=== PATIENT | male | born 1935 | race Caucasian/White ===

== ENCOUNTER 2017-03-27 23:06 | Observation (INO) | payer MEDICARE ==
[~2017-03-27] VITALS: Ht 175.3 cm; Wt 61.3 kg
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
[~2017-03-27 23:06] MED LIST changes: -FAMOTIDINE20 MG PO
[2017-03-28 00:16] LABS: BICARBONATE 17.7 mmol/L (18.0-23.0); LACTATE 3.2 mEq/L (0.50-1.60); PCO2 28 mmHg (35-45); PO2 155 mmHg (80-90)
[2017-03-28 00:17] LABS: BASOPHIL % 0.7 %; EOSINOPHIL # 0.1 K/uL (0.0-0.5); EOSINOPHIL % 3.3 %; HEMATOCRIT 32.2 % (33.0-50.0); HEMOGLOBIN 11.5 g/dL (11.0-16.0); IMMATURE GRANULOCYTE % 0.5 %; LYMPHOCYTE # 0.8 K/uL (0.8-4.0); LYMPHOCYTE % 17.5 %; MCH 33.1 pg (27.0-34.0); MCHC 35.7 gm/dL (32.0-36.5); MCV 92.8 fl (83.0-98.0); MONOCYTE # 0.5 K/uL (0.0-1.0); MONOCYTE % 11.7 %; MPV 9.3 fl (9.4-12.4); NEUTROPHIL # (ANC) 2.9 K/uL (1.4-9.0); NEUTROPHIL % 66.3 %; NRBC % 0 /100WBC (0-0.00); PLATELET COUNT 152 K/uL (150-450); RBC 3.47 M/uL (3.50-5.50); RDW-CV 14.9 % (11.9-14.6); WBC 4.3 K/uL (4.0-11.0)
[2017-03-28 00:22] LABS: BILIRUBIN URINE NEGATIVE (NEGATIVE); BLOOD URINE 10 /UL (NEGATIVE); COLOR URINE YELLOW (YELLOW); GLUCOSE URINE NEGATIVE (NEGATIVE); KETONE URINE NEGATIVE (NEGATIVE); LEUKOCYTES URINE NEGATIVE /UL (NEGATIVE); NITRITE URINE NEGATIVE (NEGATIVE); PROTEIN URINE NEGATIVE (NEGATIVE); SPEC GRAVITY URINE 1.005 (1.003-1.035); TURBIDITY URINE CLEAR (CLEAR); UROBILINOGEN URINE NORMAL (NORMAL)
[2017-03-28 00:26] LABS: INR - (THERAPEUTIC) 1.08 (0.92-1.07); PROTIME 11.4 SECONDS (9.8-11.4); PTT 26 SECONDS (25-32)
[2017-03-28 00:31] LABS: BACTERIA URINE RARE (NEGATIVE); EPITHELIAL URINE NEGATIVE #/HPF (NEGATIVE); RBC URINE 0-2 #/HPF (NEGATIVE); RENAL EPITH URINE NEGATIVE #/HPF (NEGATIVE); WBC URINE NEGATIVE #/HPF (NEGATIVE)
[2017-03-28 00:39] LABS: BARBITURATE NEGATIVE (NEGATIVE); COCAINE NEGATIVE (NEGATIVE); OPIATES NEGATIVE (NEGATIVE)
[2017-03-28 00:40] LABS: ALBUMIN 3.6 gm/dL (3.5-5.0); ALK PHOS 93 IU/L (33-138); ALT 38 IU/L (12-78); ANION GAP 16.1 (10.0-19.0); AST 37 IU/L (10-40); BLOOD UREA NITROGEN 14 mg/dL (6-24); CALCIUM 7.8 mg/dL (8.5-10.5); CHLORIDE 98 mMol/L (96-110); CO2 18 mMol/L (22-32); CPK 128 IU/L (35-332); CREATININE 1.3 mg/dL (0.6-1.3); ESTIMATED GFR (MDRD EQUATION) 53; POTASSIUM 4.1 mMol/L (3.7-5.1); SODIUM 128 mMol/L (135-145); TOTAL BILIRUBIN 1.4 mg/dL (0.0-1.5); TOTAL PROTEIN 6.7 g/dL (6.0-8.4)
[2017-03-28 00:40] LABS: AMPHETAMINE NEGATIVE (NEGATIVE)
[2017-03-28] MEDS ORDERED: LIPITOR40 MG PO (03:14)
[2017-03-28] MEDS ORDERED: FAMOTIDINE20 MG PO (03:15)
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
--- NOTE | 2017-03-28 05:20 | NUR ---
Signficant events: Pt A/Ox3. VSS. NO complaints of pain. Head wounds covered, CDI. Up 1PA. On RA. Saline locked. 1:1 sitter continues. Psych to see today.
[2017-03-28 06:27] LABS: ANION GAP 14.6 (10.0-19.0); CREATININE 1.3 mg/dL (0.6-1.3); POTASSIUM 4.6 mMol/L (3.7-5.1)
--- NOTE | 2017-03-28 11:15 | NUR ---
Reviewed patients chart. I called and spoke with [facility] to see if patient was an EPC. They request that we call them when patient is ready for discharge and they will come up and interview patient to make determination. I called and spoke with Dr Barksdale who states patient is ready for transfer to [facility] anytime. I called and spoke with Page at the access center who states that they can accept patient when medically cleared. I faxed discharge paperwork to Dr Barksdale to complete so patient could go to [facility].
--- NOTE | 2017-03-28 14:04 | NUR ---
Patient alert and oriented X 3. Room air. SBP 130-140. HR 50's. Resting in bed. Ambulated in room to restroom. Dressings to bilateral temporal and upper left head, gauze and stockingette. Dressing clean dry and intact. Scant dressing to right temporal. Patient sad no plans for suicide at this time. Family has been at bedside this shift. All morning medications given next meds due at 2100. 1:1 sitter during shift. Pleasant and cooperative with cares.
--- NOTE | 2017-03-28 14:15 | NUR ---
Discharge paperwork completed and faxed to PCU. I called and updated D that patient could go to [facility] today. Officer Tacos sorensen #[id number] came up and is going to EPC patient to [facility]. I called and checked with Page who statesd patient can be admitted now. Patient did leave with Officer Tacos per w/c. Transfer packet sent.
== END 2017-03-28 14:30 ==
LOC: GACC 23:06 → GPCU 03-28 01:46
PROVIDERS: Emergency Medicine; ADMIT Family Medicine
DX: T14.91 Suicide attempt (principal); X74.01XA Intentional self-harm by airgun, initial encounter; J43.9 Emphysema, unspecified; I25.10 Atherosclerotic heart disease of native coronary artery without angina pectoris; E78.5 Hyperlipidemia, unspecified; Z98.890 Other specified postprocedural states; F10.10 Alcohol abuse, uncomplicated; Z95.1 Presence of aortocoronary bypass graft; F17.220 Nicotine dependence, chewing tobacco, uncomplicated; F32.9 Major depressive disorder, single episode, unspecified; I73.9 Peripheral vascular disease, unspecified; Z86.73 Personal history of transient ischemic attack (TIA), and cerebral infarction without residual deficits; I12.9 Hypertensive chronic kidney disease with stage 1 through stage 4 chronic kidney disease, or unspecified chronic kidney disease; N18.3 Chronic kidney disease, stage 3 (moderate); Z85.51 Personal history of malignant neoplasm of bladder; Z79.82 Long term (current) use of aspirin; Z79.899 Other long term (current) drug therapy
CPT/HCPCS: G0378; G0480

== ENCOUNTER → 2017-03-27 | Outpatient (CLI) | payer MEDICARE, SELFPAY ==
[~2017-03-27] MED LIST: ALEVE220 MG PO; ASPIRIN325 MG PO; FAMOTIDINE20 MG PO; LIPITOR40 MG PO; MILK OF MA400 MG/5 M PO; NEURONTIN100 MG PO; NORCO 5-325 TA1 EACH PO; PLAVIX75 MG PO; PROTONIX40 MG PO; TOPROL XL100 MG PO; TYLENOL WITH C1 EACH PO; TYLENOL325 MG PO; ZOLOFT50 MG PO
== END | disposition disaster alternative care site (69) ==
LOC: GAMB 22:43
DX: T14.91 Suicide attempt (principal); I63.9 Cerebral infarction, unspecified; S01.93XA Puncture wound without foreign body of unspecified part of head, initial encounter; S01.91XA Laceration without foreign body of unspecified part of head, initial encounter; R58 Hemorrhage, not elsewhere classified; X74.01XA Intentional self-harm by airgun, initial encounter
CPT/HCPCS: A0425; A0429